=== PATIENT | male | born 1945 | race Hispanic/Latino ===

== ENCOUNTER 2021-11-25 14:00 | Inpatient (IN) | payer OTHER ==
[~2021-11-25] VITALS: Ht 165.1 cm; Wt 70.8 kg
[2021-11-25 10:16] LABS: APPEARANCE,URINE CLEAR (CLEAR); BILIRUBIN,URINE NEGATIVE (NEGATIVE); COLOR,URINE YELLOW (YELLOW); GLUCOSE, URINE (UA) NEGATIVE (NEGATIVE); KETONES,URINE NEGATIVE (NEGATIVE); LEUKOCYTE ESTERASE ,URINE NEGATIVE (NEGATIVE); NITRATE,URINE NEGATIVE (NEGATIVE); OCCULT BLOOD,URINE NEGATIVE (NEGATIVE); PROTEIN,URINE NEGATIVE (NEGATIVE); UROBILINOGEN,URINE 0.2 mg/dL (0.2-1.0)
[~2021-11-25 14:00] MED LIST: GABA-529 PO
[2021-11-28] VITALS (24 sets, daily range): BP systolic 102–152; BP diastolic 44–69
[2021-11-28] MEDS ORDERED: CEFAZOLIN SODIUM 1 GM VIAL IVP ONE (08:00)
[2021-11-28] MEDS ORDERED: LACTATED RINGERS 1000ML 1,000 ML IV ONE (08:35)
[2021-11-28] MEDS ORDERED: DEXAMETHASONE SOD PHOSPHATE 10MG/ML 1ML VIAL ONE ×2 (10:22→15:44)
[2021-11-28] MEDS ORDERED: SUCCINYLCHOLINE CHLORIDE 20 MG/ML 10 ML VIAL ONE (10:22)
[2021-11-28] MEDS ORDERED: GLYCOPYRROLATE 1 MG/5 ML SYRINGE ONE ×2 (10:22→15:44)
[2021-11-28] MEDS ORDERED: LIDOCAINE PF 100MG/5ML (2%) SYRINGE 5ML ONE (10:22)
[2021-11-28] MEDS ORDERED: ONDANSETRON 4MG INJ ONE (10:22)
[2021-11-28] MEDS ORDERED: PROPOFOL 10 MG/ML 20ML VIAL IV ONE ×2 (10:23→13:26)
[2021-11-28] MEDS ORDERED: FENTANYL CITRATE PF 50 MCG/1 ML 2ML VIAL ONE ×2 (10:23→15:44)
[2021-11-28] MEDS ORDERED: NEOSTIGMINE 5MG/5ML SYR IV ONE ×2 (10:24→15:45)
[2021-11-28] MEDS ORDERED: MIDAZOLAM HCL 1 MG/ML 2ML VIAL ONE (10:24)
[2021-11-28] MEDS ORDERED: ROCURONIUM 10MG/1ML SYR 10 MG/ML ML ONE ×2 (10:24→14:05)
[2021-11-28] MEDS ORDERED: ROPIVACAINE 0.5% 5MG/ML 30ML IJ ONE (11:11)
[2021-11-28] MEDS ORDERED: TRANEXAMIC ACID 1000MG/10ML ONE ×2 (11:56→17:03)
[2021-11-28] MEDS ORDERED: CEFAZOLIN SODIUM 1 GM VIAL ONE (11:56)
[2021-11-28] MEDS ORDERED: 0.9%NACL 10ML VIAL ONE ×2 (13:11→14:21)
[2021-11-28] MEDS ORDERED: EPHEDRINE SULFATE 50 MG/ML AMPULE ONE (13:54)
[2021-11-28] MEDS ORDERED: MEPERIDINE-PF 25 MG/ML SYG ONE ×3 (15:11→17:01)
[2021-11-28] MEDS ORDERED: KCL 20 MEQ ERTAB PO PRN (16:00)
[2021-11-28] MEDS: ACETAMINOPHEN 500 MG TABLET PO SCH (16:00)
[2021-11-28] MEDS ORDERED: TEMAZEPAM 15 MG CAPSULE PO PRN (16:00)
[2021-11-28] MEDS ORDERED: DiphenhydrAMINE HCL 50 MG/ML VIAL IVP PRN (16:00)
[2021-11-28] MEDS: 0.9%NACL 1000ML 1,000 ML IV SCH (16:00)
[2021-11-28] MEDS ORDERED: POTASSIUM CHLORIDE 20MEQ/100ML 100 ML IV PRN (16:00)
[2021-11-28] MEDS ORDERED: TRAMADOL HCL 50 MG TABLET PO PRN (16:00)
[2021-11-28] MEDS ORDERED: ONDANSETRON 4MG INJ IVP PRN (16:00)
[2021-11-28] MEDS ORDERED: LIDOCAINE HCL-MPF 1% 2ML VIAL IV PRN (16:00)
[2021-11-28] MEDS ORDERED: OXYCODONE HCL 5 MG TAB PO PRN (16:00)
[2021-11-28] MEDS ORDERED: POTASSIUM CHLORIDE 10% ELIXIR 20 MEQ/15 ML UDCUP PO PRN (16:00)
[2021-11-28] MEDS ORDERED: KETOROLAC 15MG/ML VIAL (15MG/ML) IV PRN (16:00)
[2021-11-28] MEDS ORDERED: FERROUS FUMARATE 324 MG TABLET PO PRN (16:00)
[2021-11-28] MEDS ORDERED: KETOROLAC 30MG VIAL (30MG/ML) ONE (16:06)
[2021-11-28] MEDS: INSULIN HUMULIN R 100 UNIT/ML 3ML SQ SCH ×2 (16:30→21:00)
[2021-11-28] MEDS: ASPIRIN 81MG CHEW TAB PO SCH (21:00)
[2021-11-28] MEDS: CELECOXIB 200 MG CAP PO SCH (21:00)
[2021-11-28] MEDS: FAMOTIDINE 20MG TAB PO SCH (21:00)
[2021-11-28] MEDS: GABAPENTIN 100 MG CAPSULE PO SCH (21:00)
[2021-11-28] MEDS: CEFAZOLIN SODIUM 1 GM VIAL IVP SCH (21:01)
[2021-11-29] MEDS: ACETAMINOPHEN 500 MG TABLET PO SCH ×4 (00:04→23:18)
[2021-11-29] MEDS: 0.9%NACL 1000ML 1,000 ML IV SCH ×2 (02:00→12:00)
[2021-11-29 03:41] LABS: HEMATOCRIT 34.7 % (42-54); MEAN CORPUSCULAR HEMOGLOBIN 31.4 pg (27.0-33.0); MEAN CORPUSCULAR HGB CONC 32.6 g/dL (32.0-36.0); MEAN CORPUSCULAR VOLUME 96.4 fL (79-99); RED BLOOD CELL COUNT(AUTO) 3.6 MIL/uL (4.50-6.20); RED CELL DISTRIBUTION WIDTH 12.8 % (11.0-15.5); WHITE BLOOD COUNT (AUTO) 7.9 K/uL (4.8-10.8)
[2021-11-29 03:46] VITALS: BP 116/50
[2021-11-29 03:58] LABS: CREATININE 0.9 mg/dL (0.5-1.5); POTASSIUM 4.5 mmol/L (3.5-5.1)
[2021-11-29] MEDS: CEFAZOLIN SODIUM 1 GM VIAL IVP SCH (06:32)
[2021-11-29] MEDS: INSULIN HUMULIN R 100 UNIT/ML 3ML SQ SCH ×4 (06:32→21:00)
[2021-11-29 07:15] VITALS: BP 100/56
[2021-11-29] MEDS: CALCIUM CARB 500MG PO PRN ×2 (09:18→20:38)
[2021-11-29] MEDS: ASPIRIN 81MG CHEW TAB PO SCH ×2 (09:18→20:38)
[2021-11-29] MEDS: TAMSULOSIN HCL 0.4 MG CAP.ER.24H PO SCH (09:19)
[2021-11-29] MEDS: POLYETHYLENE GLYCOL 3350 17 GM POWD.PACK PO SCH (09:19)
[2021-11-29] MEDS: CELECOXIB 200 MG CAP PO SCH ×2 (09:19→20:37)
[2021-11-29] MEDS: FAMOTIDINE 20MG TAB PO SCH ×2 (09:19→20:38)
[2021-11-29] MEDS: GABAPENTIN 100 MG CAPSULE PO SCH ×2 (09:19→20:37)
[2021-11-29 11:55] VITALS: BP 110/48
[2021-11-29 15:05] VITALS: BP 116/49
[2021-11-29] MEDS: OXYCODONE HCL 5 MG TAB PO PRN ×2 (16:34→20:40)
[2021-11-29 19:52] VITALS: BP 148/67
[2021-11-29 23:26] VITALS: BP 157/74
[2021-11-30 03:34] VITALS: BP 145/62
[2021-11-30] MEDS: INSULIN HUMULIN R 100 UNIT/ML 3ML SQ SCH (07:30)
[2021-11-30 08:00] VITALS: BP 139/59
[2021-11-30] MEDS: TAMSULOSIN HCL 0.4 MG CAP.ER.24H PO SCH (08:10)
[2021-11-30] MEDS: FAMOTIDINE 20MG TAB PO SCH (08:10)
[2021-11-30] MEDS: ASPIRIN 81MG CHEW TAB PO SCH (08:10)
[2021-11-30] MEDS: CELECOXIB 200 MG CAP PO SCH (08:11)
[2021-11-30] MEDS: POLYETHYLENE GLYCOL 3350 17 GM POWD.PACK PO SCH (08:11)
[2021-11-30] MEDS: ACETAMINOPHEN 500 MG TABLET PO SCH (08:11)
[2021-11-30] MEDS: GABAPENTIN 100 MG CAPSULE PO SCH (08:11)
[2021-11-30 11:28] VITALS: BP 140/59
[2021-12-01] MEDS ORDERED: BISACODYL 10 MG SUPP.RECT RC PRN (16:00)
== END 2021-11-30 18:30 | DRG 470 ==
LOC: DAHIP 11-28 07:16 → EDSTATUS 11-28 14:00 → 4AH 11-28 16:56
PROVIDERS: ADMIT Orthopaedic Surgery; ATTEND Orthopaedic Surgery
PROC: 3E0T33Z Introduction of Anti-inflammatory into Peripheral Nerves and Plexi, Percutaneous Approach (ICD-10-PCS; 2021-11-28)
PROC: 0SRD0J9 Replacement of Left Knee Joint with Synthetic Substitute, Cemented, Open Approach (ICD-10-PCS; principal; 2021-11-28 14:19)
PROC: 3E0T3BZ Introduction of Anesthetic Agent into Peripheral Nerves and Plexi, Percutaneous Approach (ICD-10-PCS; 2021-11-28 14:19)
DX: M17.12 Unilateral primary osteoarthritis, left knee (principal); G89.29 Other chronic pain; F17.200 Nicotine dependence, unspecified, uncomplicated; Z20.822 Contact with and (suspected) exposure to COVID-19; Z96.651 Presence of right artificial knee joint; Z88.8 Allergy status to other drugs, medicaments and biological substances; Z80.9 Family history of malignant neoplasm, unspecified
CPT/HCPCS: 36415; 80048; 81003; 82948; 85027; 87088; 87635; 87641; 97039; G0378; J0330; J0690; J1100; J1885; J2001; J2175; J2250; J2405; J2704; J2710; J2795; J3010; J3490; J7120

== ENCOUNTER 2022-08-11 06:21 | Day surgery (SDC) | payer OTHER ==
[2022-08-10 10:18] LABS: ALBUMIN 3.9 g/dL (3.5-5.0); CRP QUANTITATIVE < 2.00 mg/L (0.00-9.0)
[2022-08-10 10:39] VITALS: BP 166/61
[2022-08-11] VITALS (17 sets, daily range): BP systolic 105–154; BP diastolic 42–71
[~2022-08-11] VITALS: Ht 165.1 cm; Wt 70.6 kg
[~2022-08-11 06:21] MED LIST changes: +BUPIVACAINE/PF 0.25% 30ML VIAL IJ ONE; +CEFAZOLIN SODIUM 1 GM VIAL IVPB SCH; -GABA-529 PO; +GABA300S PO
[2022-08-11] MEDS ORDERED: LACTATED RINGERS 1000ML 1,000 ML IV ONE (06:57)
[2022-08-11] MEDS ORDERED: LIDOCAINE PF 100MG/5ML (2%) SYRINGE 5ML ONE (08:03)
[2022-08-11] MEDS ORDERED: GLYCOPYRROLATE 1 MG/5 ML SYRINGE ONE (08:03)
[2022-08-11] MEDS ORDERED: FENTANYL CITRATE PF 50 MCG/1 ML 2ML VIAL ONE (08:04)
[2022-08-11] MEDS ORDERED: NEOSTIGMINE 5MG/5ML SYR IV ONE (08:04)
[2022-08-11] MEDS ORDERED: ROCURONIUM 10MG/1ML SYR 10 MG/ML ML ONE (08:04)
[2022-08-11] MEDS ORDERED: PROPOFOL 10 MG/ML 20ML VIAL IV ONE (08:04)
[2022-08-11] MEDS ORDERED: MEPERIDINE-PF 25 MG/ML SYG ONE ×2 (09:34→10:32)
[2022-08-11] MEDS ORDERED: ONDANSETRON 4MG INJ ONE (09:34)
[2022-08-11] MEDS ORDERED: ACET-2079 PO (10:16)
== END 2022-08-11 12:05 | disposition home or self-care (01) ==
LOC: DAH 06:21
PROVIDERS: ATTEND Student in an Organized Health Care Education/Training Program
DX: G56.02 Carpal tunnel syndrome, left upper limb (principal); G56.22 Lesion of ulnar nerve, left upper limb; F17.210 Nicotine dependence, cigarettes, uncomplicated; Z20.822 Contact with and (suspected) exposure to COVID-19; Z98.890 Other specified postprocedural states; Z86.19 Personal history of other infectious and parasitic diseases; Z80.9 Family history of malignant neoplasm, unspecified; Z72.89 Other problems related to lifestyle
CPT/HCPCS: 82040; 84134; 86140; 87426; 36415; 64718; 64721; A4663; A4565; A4649; J7120; J3010; J0690; J3490 ×2; J2710; J2001; J2704; J2405; J2175 ×2; A6223; A5120; A4215; A4223; A4222; A4221

== ENCOUNTER → 2024-02-18 | Outpatient (CLI) | payer OTHER ==
[~2024-02-18] MED LIST changes: +ACET-2079 PO; -BUPIVACAINE/PF 0.25% 30ML VIAL IJ ONE; -CEFAZOLIN SODIUM 1 GM VIAL IVPB SCH; -GABA300S PO; +GABA300S3 PO
== END | disposition home or self-care (01) ==
LOC: SHCH 14:55
PROVIDERS: ATTEND Internal Medicine Cardiovascular Disease
DX: I70.203 Unspecified atherosclerosis of native arteries of extremities, bilateral legs (principal)
CPT/HCPCS: 93925

== ENCOUNTER → 2024-03-17 | Outpatient (CLI) | payer OTHER ==
[2024-03-17 12:01] LABS: BASOPHILS # (AUTO) 0.07 K/uL (0.00-0.20); BASOPHILS % (AUTO) 1.7 % (0.0-5.0); EOSINOPHILS # (AUTO) 0.07 K/uL (0.00-0.70); EOSINOPHILS % (AUTO) 1.7 % (0.0-8.0); HEMATOCRIT 34.1 % (42-54); IMMATURE GRANULOCYTE ABSOLUTE 0.03 K/uL (0-1); LYMPHOCYTES % (AUTO) 25.1 % (21.0-51.0); MEAN CORPUSCULAR HEMOGLOBIN 30.9 pg (27.0-33.0); MEAN CORPUSCULAR HGB CONC 31.1 g/dL (32.0-36.0); MEAN CORPUSCULAR VOLUME 99.4 fL (79-99); MONOCYTES # (AUTO) 0.4 K/uL (0.1-1.0); NEUTROPHILS # (AUTO) 2.5 K/uL (1.8-7.7); NEUTROPHILS % (AUTO) 61.8 % (40.0-77.0); PLATELET COUNT (AUTO) 168 K/uL (130-400); RED BLOOD CELL COUNT(AUTO) 3.43 MIL/uL (4.50-6.20); RED CELL DISTRIBUTION WIDTH 15.8 % (11.0-15.5)
[2024-03-17 12:06] LABS: POTASSIUM 4.4 mmol/L (3.5-5.1)
[2024-03-17 12:31] LABS: INR <= 0.93 (0.85-1.15)
[2024-03-17 12:33] LABS: PARTIAL THROMBOPLASTIN TIME 26.6 SEC (26.3-35.5)
== END | disposition home or self-care (01) ==
LOC: LAB 10:16
PROVIDERS: ATTEND Internal Medicine Cardiovascular Disease
DX: I73.9 Peripheral vascular disease, unspecified (principal); Z79.899 Other long term (current) drug therapy; I70.8 Atherosclerosis of other arteries; I77.9 Disorder of arteries and arterioles, unspecified; R93.1 Abnormal findings on diagnostic imaging of heart and coronary circulation; Z79.82 Long term (current) use of aspirin; Z79.01 Long term (current) use of anticoagulants
CPT/HCPCS: 36415; 80048; 85025; 85610; 85730

== ENCOUNTER → 2024-07-11 | Outpatient (CLI) | payer OTHER ==
[2024-07-11 12:25] LABS: BASOPHILS # (AUTO) 0.04 K/uL (0.00-0.20); BASOPHILS % (AUTO) 1.2 % (0.0-5.0); EOSINOPHILS # (AUTO) 0.09 K/uL (0.00-0.70); EOSINOPHILS % (AUTO) 2.6 % (0.0-8.0); HEMATOCRIT 38.3 % (42-54); IMMATURE GRANULOCYTE ABSOLUTE 0.04 K/uL (0-1); LYMPHOCYTES # (AUTO) 0.5 K/uL (1.0-4.8); LYMPHOCYTES % (AUTO) 15.2 % (21.0-51.0); MEAN CORPUSCULAR HEMOGLOBIN 32.4 pg (27.0-33.0); MEAN CORPUSCULAR HGB CONC 32.1 g/dL (32.0-36.0); MEAN CORPUSCULAR VOLUME 100.8 fL (79-99); MONOCYTES # (AUTO) 0.5 K/uL (0.1-1.0); MONOCYTES % (AUTO) 13.2 % (3.0-13.0); NEUTROPHILS # (AUTO) 2.3 K/uL (1.8-7.7); NEUTROPHILS % (AUTO) 66.6 % (40.0-77.0); PLATELET COUNT (AUTO) 127 K/uL (130-400); RED CELL DISTRIBUTION WIDTH 13.8 % (11.0-15.5); WHITE BLOOD COUNT (AUTO) 3.4 K/uL (4.8-10.8)
[2024-07-11 12:57] LABS: CREATININE 0.9 mg/dL (0.5-1.3); POTASSIUM 4.9 mmol/L (3.5-5.1)
[2024-07-11 13:22] LABS: INR 0.98 (0.85-1.15); PROTHROMBIN TIME 10.6 SEC (9.6-11.6)
[2024-07-11 13:23] LABS: PARTIAL THROMBOPLASTIN TIME 27.3 SEC (26.3-35.5)
== END | disposition home or self-care (01) ==
LOC: LAB 10:10
PROVIDERS: ATTEND Internal Medicine Cardiovascular Disease
DX: I73.9 Peripheral vascular disease, unspecified (principal); D64.9 Anemia, unspecified; D69.6 Thrombocytopenia, unspecified; M79.662 Pain in left lower leg
CPT/HCPCS: 36415; 80048; 85025; 85610; 85730

== ENCOUNTER → 2024-09-23 | Outpatient (CLI) | payer OTHER | END | disposition home or self-care (01) | LOC: SHCH 12:29 | PROVIDERS: ATTEND Internal Medicine Cardiovascular Disease | DX: R10.31 Right lower quadrant pain (principal) | CPT/HCPCS: 93926 ==

== ENCOUNTER → 2024-10-14 | Outpatient (CLI) | payer OTHER ==
[2024-10-14 13:30] LABS: CHOLESTEROL 102 mg/dL (<200); HDL CHOLESTEROL 39 mg/dL (29-71); LDL DIRECT 63 mg/dL (0-99); TRIGLYCERIDES 28 mg/dL (30-200)
== END | disposition home or self-care (01) ==
LOC: LAB 09:25
PROVIDERS: ATTEND Internal Medicine Cardiovascular Disease
DX: E78.2 Mixed hyperlipidemia (principal)
CPT/HCPCS: 36415; 80061